=== PATIENT | female | born 1990 | race Caucasian/White ===

== ENCOUNTER 2024-05-08 18:18 | Emergency (ER) | payer OTHER ==
[2024-05-08 18:31] VITALS: BMI 23.8
[2024-05-08] MEDS ORDERED: ASPIRIN 81 MG CHEWABLE TABLETS PO ONE (19:45)
[2024-05-08] MEDS: SODIUM CHLORIDE 1,000 ML IV STA (20:08)
[2024-05-08 20:16] LABS: BASO % 1.3 % (0-2.0); EOS % 1.6 % (0-4.5); HEMATOCRIT 35.6 % (32.4-45.2); HEMOGLOBIN 12.2 GM/dL (10.7-15.3); INR 0.92 (0.83-1.09); LYMPH % 18.6 % (8-40); MCH 29.8 pg (25.7-33.7); MCHC 34.1 g/dl (32.0-36.0); MEAN CELL VOLUME 87.5 fl (80-96); MONO % 8.1 % (3.8-10.2); NEUT % 70.4 % (42.8-82.8); PLATELET COUNT 314 10^3/uL (134-434); PROTHROMBIN TIME (PATIENT) 10.4 SEC (9.7-13.0); RBC 4.07 M/mm3 (3.60-5.2); RDW 12.8 % (11.6-15.6); WHITE BLOOD COUNT 11.9 K/mm3 (4.0-10.0)
[2024-05-08 20:19] LABS: ACTIVATED PTT 25.5 SECONDS (25.2-36.5)
[2024-05-08 20:29] LABS: POTASSIUM 4.2 mmol/L (3.5-5.1)
[2024-05-08 20:31] LABS: ALBUMIN 3.3 g/dl (3.4-5.0); BLOOD UREA NITROGEN 8.5 mg/dL (7-18)
[2024-05-08 20:34] LABS: CREATININE 0.4 mg/dL (0.55-1.3)
[2024-05-08 20:36] LABS: BILIRUBIN,TOTAL 0.4 mg/dL (0.2-1); TOT PROT 6.8 g/dl (6.4-8.2)
[2024-05-08] MEDS ORDERED: DIPHTH,PERTUSS(ACELL),TET 0.5 ML DISP.SYRIN IM ONE (21:16)
[2024-05-08] MEDS: DIPHTH,PERTUSS(ACELL),TET 0.5 ML DISP.SYRIN IM ONE (21:21)
[2024-05-08 22:03] VITALS: BP 101/60; PULSE 65; RESP 16; TEMP 98.1
== END 2024-05-08 22:18 | disposition home or self-care (01) ==
LOC: JER 18:18
PROC: 3E0337Z Introduction of Electrolytic and Water Balance Substance into Peripheral Vein, Percutaneous Approach (ICD-10-PCS; principal; 2024-05-08)
PROC: 3E0234Z Introduction of Serum, Toxoid and Vaccine into Muscle, Percutaneous Approach (ICD-10-PCS; 2024-05-08)
DX: R00.2 Palpitations (principal); R00.0 Tachycardia, unspecified; R94.6 Abnormal results of thyroid function studies; Z23 Encounter for immunization
CPT/HCPCS: 36415; 80053; 82550; 83735; 84439; 84443; 84484; 85025; 85610; 85730; 90715; 93005; 93010; 99284-25

== ENCOUNTER 2024-09-26 15:13 | Inpatient (IN) | payer OTHER ==
[2024-09-26] MEDS: LACTATED RINGERS SOLUTION 1,000 ML/1,000 ML INFUS.BAG IV SCH (16:10)
[2024-09-26 16:48] VITALS: BMI 28.7
[2024-09-26] MEDS: DINOPROSTONE 10 MG VAGINAL SUPPOSITORY VG ONE (18:00)
[2024-09-27] MEDS ORDERED: PROMETHAZINE HCL 25 MG/1 ML VIAL ONE (04:40)
[2024-09-27] MEDS ORDERED: BUTORPHANOL TARTRATE 2 MG/ML VIAL ONE (04:40)
[2024-09-27] MEDS: PROMETHAZINE HCL 25 MG/1 ML VIAL IVPB PRN (04:50)
[2024-09-27] MEDS: BUTORPHANOL TARTRATE 1 MG/ML VIAL IVPUSH ONE (04:50)
[2024-09-27] MEDS ORDERED: OXYTOCIN 30 UNITS in 0.9% NS 30 UNIT/500 ML INFUS.BAG IVPB ONE (09:32)
[2024-09-27] MEDS: OXYTOCIN 30 UNITS in 0.9% NS 30 UNIT/500 ML INFUS.BAG IVPB SCH (09:45)
[2024-09-27] MEDS ORDERED: FENTANYL CITRATE/PF 50 MCG/ML VIAL ONE (12:56)
[2024-09-27] MEDS ORDERED: BUPIVACAINE HCL/PF 0.25% (2.5MG/ML) 10 ML VIAL ONE (12:56)
[2024-09-27] MEDS ORDERED: FENTANYL/BUPIVACAINE/NS/PF - PCEA - 50 ML DISP.SYRIN EP ONE ×3 (12:57→21:41)
[2024-09-27] MEDS: FENTANYL/BUPIVACAINE/NS/PF - PCEA - 50 ML DISP.SYRIN EP SCH (13:10)
[2024-09-27] MEDS ORDERED: NALOXONE HCL 0.4 MG/ML VIAL IVPUSH PRN (13:21)
[2024-09-28] MEDS ORDERED: FENTANYL/BUPIVACAINE/NS/PF - PCEA - 50 ML DISP.SYRIN EP ONE ×2 (02:34→06:38)
[2024-09-28] MEDS: CITRIC ACID/SODIUM CITRATE 30 ML UNIT-DOSE CUP PO ONE (07:00)
[2024-09-28] MEDS ORDERED: morphine SULFATE (PF) 1 MG/2 ML SYRINGE ONE (08:13)
[2024-09-28] MEDS ORDERED: ceFAZolin SODIUM 1 GM VIAL ONE (08:14)
[2024-09-28] MEDS ORDERED: SODIUM CHLORIDE 0.9% P/F 10 ML VIAL IJ ONE (08:14)
[2024-09-28] MEDS ORDERED: AZITHROMYCIN IVPB ONE (08:32)
[2024-09-28] MEDS ORDERED: OXYTOCIN 10 UNITS/ML VIAL ONE (08:44)
[2024-09-28] MEDS: METHYLERGONOVINE MALEATE 0.2 MG/1 ML AMP IM PRN (08:48)
[2024-09-28] MEDS ORDERED: FENTANYL CITRATE/PF 50 MCG/ML VIAL ONE (08:56)
[2024-09-28] MEDS ORDERED: MIDAZOLAM HCL 2 MG/2 ML SINGLE DOSE VIAL ONE (08:56)
[2024-09-28] MEDS ORDERED: ACETAMINOPHEN INJECTION 100 ML ONE (09:04)
[2024-09-28] MEDS ORDERED: morphine SULFATE/PF 1 MG/2 ML (2cc Syringe - QUVA) EP ONE (09:05)
[2024-09-28] MEDS ORDERED: ACETAMINOPHEN 325 MG TABLET (FP) PO PRN ×2 (09:05→09:21)
[2024-09-28] MEDS ORDERED: ONDANSETRON 4 MG/2 ML VIAL IVPUSH PRN (09:05)
[2024-09-28] MEDS: IBUPROFEN 800 MG/8 ML IJ IVPB PRN (09:05)
[2024-09-28] MEDS ORDERED: IBUPROFEN 600 MG TABLET (FP) PO PRN (09:21)
[2024-09-28] MEDS ORDERED: OXYTOCIN 20 UNITS in 0.9% NS 20 UNIT/1,000 ML INFUS.BAG IV ONE (09:27)
[2024-09-28] MEDS: OXYTOCIN 20 UNITS in 0.9% NS 20 UNIT/1,000 ML INFUS.BAG IV SCH (09:30)
[2024-09-28 09:50] LABS: CORD PCO2 44.7 mmHg (30-78); CORD pH 7.33 (7.14-7.44)
[2024-09-28 09:51] LABS: CORD BASE EXCESS -2.3 mmol/L (0-2); CORD HCO3 22.6 mmHg (20-29); CORD PCO2 39.2 mmHg (30-78); CORD pH 7.378 (7.14-7.44)
[2024-09-28] MEDS: FERROUS SO4 325 MG TABLET (FP) PO SCH (13:02)
[2024-09-28] MEDS: PRENATAL VITAMINS W/ FOLIC ACID TABLET (FP) PO SCH (13:02)
[2024-09-28] MEDS: ENOXAPARIN NA (PORCINE) 40 MG/0.4 ML DISP.SYRIN SQ SCH (20:39)
[2024-09-28] MEDS: IBUPROFEN 600 MG TABLET (FP) PO PRN (20:40)
[2024-09-28] MEDS ORDERED: oxyCODONE HCL 5 MG TABLET PO PRN ×2 (21:21)
[2024-09-29] MEDS: SIMETHICONE 80 MG TAB.CHEW (FP) PO PRN (04:15)
[2024-09-29 06:41] LABS: BASO % 0.3 % (0-2.0); EOS % 0.2 % (0-4.5); HEMATOCRIT 29.2 % (32.4-45.2); HEMOGLOBIN 9.8 GM/dL (10.7-15.3); MCH 28.3 pg (25.7-33.7); MCHC 33.5 g/dl (32.0-36.0); MEAN CELL VOLUME 84.7 fl (80-96); MEAN PLT VOLUME 7.2 fl (7.5-11.1); MONO % 9.1 % (3.8-10.2); NEUT % 82.4 % (42.8-82.8); PLATELET COUNT 241 10^3/uL (134-434); RBC 3.44 M/mm3 (3.60-5.2); RDW 13.9 % (11.6-15.6)
[2024-09-29] MEDS ORDERED: BISACODYL 10 MG SUPP.RECT RC PRN (09:21)
[2024-09-29] MEDS: SENNOSIDES/DOCUSATE COMBO (SENNA PLUS) TABLET (UD) PO PRN (22:20)
[2024-09-30 21:51] VITALS: TEMP 98.5
[2024-10-01 08:12] LABS: BASO % 0.9 % (0-2.0); HEMATOCRIT 28.7 % (32.4-45.2); LYMPH % 19.1 % (8-40); MCH 29.3 pg (25.7-33.7); MEAN CELL VOLUME 83.8 fl (80-96); MEAN PLT VOLUME 7.3 fl (7.5-11.1); MONO % 8.1 % (3.8-10.2); NEUT % 68.9 % (42.8-82.8); PLATELET COUNT 294 10^3/uL (134-434); RBC 3.42 M/mm3 (3.60-5.2); WHITE BLOOD COUNT 7.8 K/mm3 (4.0-10.0)
[2024-10-01 09:15] VITALS: BP 118/73; PULSE 66; RESP 14
== END 2024-10-01 13:28 | disposition home or self-care (01) | DRG 788 ==
LOC: JLDR 15:13 → J3W 09-28 12:10
PROVIDERS: ADMIT Obstetrics & Gynecology; ATTEND Obstetrics & Gynecology
PROC: 10D00Z1 Extraction of Products of Conception, Low, Open Approach (ICD-10-PCS; principal; 2024-09-28)
PROC: 3E0P7VZ Introduction of Hormone into Female Reproductive, Via Natural or Artificial Opening (ICD-10-PCS; 2024-09-28)
DX: O48.0 Post-term pregnancy (principal); O61.0 Failed medical induction of labor; O69.81X0 Labor and delivery complicated by cord around neck, without compression, not applicable or unspecified; Z3A.41 41 weeks gestation of pregnancy; Z37.0 Single live birth
CPT/HCPCS: 36415; 36600; 82803; 85025; 86850; 86900; 86901; 86922; 87340; 88307-TC; 94010; J0131